=== PATIENT | male | born 1950 | race Caucasian/White ===

== ENCOUNTER → 2023-03-30 | Day surgery (SDC) | payer MEDICARE ==
[2023-03-28 12:53] VITALS: BMI 31.5
[~2023-03-30] MED LIST: LACTATED RINGERS 1,000 ML IV SCH; LIDOCAINE 1% (10MG/ML) FOR IV START INTRADERMA PRN; LIDOCAINE 2% INJ 20 MG/ML (2 ML VIAL) ONE; PROPOFOL 10 MG/ML 20 ML VIAL IV ONE
[2023-03-30 07:10] VITALS: BP 163/72; PULSE 61; RESP 16; TEMP 97.5
--- NOTE | 2023-03-30 08:21 | P.PCN ---
Date of Procedure: 03/30/23 Procedure(s) Performed: Brief history: Patient is a pleasant 72-year-old white male scheduled for an elective upper endoscopy as well as colonoscopy as a part of evaluation of reflux and history of GERD and screening for colon cancer. He is maintained on Nexium 20 mg daily with good symptomatic control. Procedure performed: Esophagogastroduodenoscopy with biopsy Colonoscopy with biopsy. If the biopsy of the colon polyp reveals adenoma he can have a repeat colonoscopy in 5 years. Preoperative diagnosis: Long-standing history of GERD Screening for colon cancer Anesthesia: MAC Procedure: After informed consent was obtained from the patient was brought into the endoscopy unit and IV sedation was administered by anesthesia under continuous monitoring. Initially upper endoscopy was done. The Olympus GF 160 video endoscope was inserted inserted into the mouth and esophagus intubated without a ny difficulty and was gradually advanced into the stomach and duodenum and carefully examined. The bulb and second part of the duodenum appeared normal. The scope was then withdrawn into the stomach adequately insufflated with air and upon careful examination the antrum and body, cardia and fundus appeared normal. Multiple gastric polyps noted in the body and fundus of the stomach measuring between 5 limited is 1 cm size which was biopsied. The scope was then withdrawn into the esophagus. The GE junction was located at 40 cm to the incisors. There was a 1.5 cm length of Monroe's appearing mucosa proximal to the GE junction was biopsied. Rest of the esophagus appeared normal. Patient tolerated the procedure well. At this time the patient continued to remain sedation. Initial digital rectal examination was normal. Olympus CF 160 video colonoscope was then inserted into the rectum and gradually advanced to the cecum without any difficulty. Careful examination was performed as the scope was gradually being withdrawn. The prep was excellent. The cecum, ascending colon normal. In the transverse colon there was a 3 mm sessile polyp removed by cold biopsy. Rest of the, transverse colon, descending colon, sigmoid colon and rectum appeared normal. Extensive left sided diverticulosis. Retroflexion was performed in the rectum and small internal hemorrhoids were noted. Patient tolerated the procedure well. Impression: 1. Upper endoscopy revealed multiple gastric polyps in the body and fundus of the stomach, small hiatal hernia and short segment Monroe's esophagus 2. Colonoscopy revealed a 3 mm transverse colon polyp status post cold biopsy, extensive left sided diverticulosis and small internal hemorrhoids Recommendations: Findings of this examination were discussed with the patient as well as his family. He was advised to follow with the biopsy results. If the biopsy confirms the presence of Monroe's esophagus he can have a repeat upper endoscopy 3 years. Continue with Nexium 20 mg daily and follow antireflux measures. Recommend repeat screening colonoscopy in 10 years.
== END ==
LOC: ORWHC2ENDO 06:41
PROVIDERS: ATTEND Internal Medicine Gastroenterology
DX: Z12.11 Encounter for screening for malignant neoplasm of colon (principal); D12.3 Benign neoplasm of transverse colon; K31.7 Polyp of stomach and duodenum; K64.8 Other hemorrhoids; K44.9 Diaphragmatic hernia without obstruction or gangrene; K31.A0 Gastric intestinal metaplasia, unspecified; K22.70 Barrett's esophagus without dysplasia; K57.30 Diverticulosis of large intestine without perforation or abscess without bleeding; E78.5 Hyperlipidemia, unspecified; K21.9 Gastro-esophageal reflux disease without esophagitis; Z87.891 Personal history of nicotine dependence; Z79.899 Other long term (current) drug therapy
CPT/HCPCS: 88305; 45380; 43239; J2704; J2001

== ENCOUNTER → 2024-01-28 | Outpatient (CLI) | payer MEDICARE ==
--- NOTE | 2024-01-28 12:55 | XR ---
EXAMINATION TYPE: XR foot complete 3 views LT DATE OF EXAM: 01/28/2024 Comparison: None Clinical History: 73-year-old male LEFT FOOT PAIN, swelling for 5 to 6 days Findings: Moderate-sized plantar heel spur. No acute fracture, subluxation or dislocation seen. Some mild soft tissue swelling about the foot. Impression: No acute osseous abnormality seen. Plantar heel spur.
== END | disposition home or self-care (01) ==
LOC: RADXRMAIN 12:06
PROVIDERS: ATTEND Family Medicine
DX: M77.32 Calcaneal spur, left foot (principal)

== ENCOUNTER 2024-02-15 08:14 | Emergency (ER) | payer MEDICARE ==
[2024-02-15 08:21] VITALS: BP 174/87; PULSE 58; RESP 16; TEMP 97.9
--- NOTE | 2024-02-15 08:40 | ED ---
Upper Extremity HPI - General Chief Complaint: Extremity Injury, Upper Stated Complaint: R pointer finger pain/swelling Time Seen by Provider: 02/15/24 08:15 Source: patient, RN notes reviewed Mode of arrival: ambulatory Limitations: no limitations - History of Present Illness Initial Comments: 73-year-old male presents emergency department chief complaint of right hand second digit pain, swelling. Patient states that somebody some signs Sunday or so but states last 2 days it is more painful swollen he always had a lump on that finger but now it is worse he is able to move it but states it causes mild discomfort no pain by his PIP patient denies any paresthesias. - Related Data Home Medications Medication Instructions Recorded Confirmed Esomeprazole Magnesium [NexIUM] 40 mg PO DAILY 03/28/23 03/30/23 Simvastatin 40 mg PO HS 03/28/23 03/28/23 Previous Rx's Medication Instructions Recorded Cephalexin [Keflex] 500 mg PO Q6HR #40 cap 02/15/24 Allergies Allergy/AdvReac Type Severity Reaction Status Date / Time No Known Allergies Allergy Verified 03/30/23 07:05 Review of Systems ROS Statement: Those systems with pertinent positive or pertinent negative responses have been documented in the HPI. ROS Other: All systems not noted in ROS Statement are negative. Past Medical History Past Medical History: GERD/Reflux, Hyperlipidemia History of Any Multi-Drug Resistant Organisms: None Reported Past Surgical History: Hernia Repair Additional Past Surgical History / Comment(s): colonoscopy, egd Past Anesthesia/Blood Transfusion Reactions: No Reported Reaction Past Psychological History: No Psychological Hx Reported Smoking Status: Former smoker - Past Family History Father Family Medical History: Cancer Additional Family Medical History / Comment(s): prostate General Exam Limitations: no limitations General appearance: alert, in no apparent distress Head exam: Present: atraumatic, normocephalic, normal inspection Respiratory exam: Present: normal lung sounds bilaterally. Absent: respiratory distress, wheezes, rales, rhonchi, stridor Cardiovascular Exam: Present: regular rate, normal rhythm, normal heart sounds. Absent: systolic murmur, diastolic murmur, rubs, gallop, clicks Extremities exam: Present: other (Right hand second digit there is swelling, erythema at the DIP, neurovascular intact) Course Vital Signs 02/15/24 08:18 Temperature 97.9 F Pulse Rate 58 L Respiratory 16 Rate Blood Pressure 174/87 O2 Sat by Pulse 98 Oximetry Medical Decision Making - Medical Decision Making Was pt. sent in by a medical professional or institution (BET[facility] Leonardo, RELOCATION SERVICES SPECIALIST, urgent care, hospital, or detention...) When possible be specific @ -No Did you speak to anyone other than the patient for history (EMS, parent, family, police, friend...)? What history was obtained from this source @ -No Did you review nursing and triage notes (agree or disagree)? Why? @ -I reviewed and agree with nursing and triage notes Were old charts reviewed (outside hosp., previous admission, EMS record, old EKG, old radiological studies, urgent care reports/EKG's, detention records)? Report findings @ -No old charts were reviewed Differential Diagnosis (chest pain, altered mental status, abdominal pain women, abdominal pain men, vaginal bleeding, weakness, fever, dyspnea, syncope, headache, dizziness, GI bleed, back pain, seizure, CVA, palpatations, mental health, musculoskeletal)? @ -Cellulitis paronychia felon gout, this list is not all inclusive EKG interpreted by me (3pts min.). @ -None X-rays interpreted by me (1pt min.). @ -X-ray right hand second digit there is osteoarthritis changes noted, soft tis sandrita swelling CT interpreted by me (1pt min.). @ -None done U/S interpreted by me (1pt. min.). @ -None done What testing was considered but not performed or refused? (CT, X-rays, U/S, labs)? Why? @ -None What meds were considered but not given or refused? Why? @ -None Did you discuss the management of the patient with other professionals (professionals i.e. BETI Leonardo, RELOCATION SERVICES SPECIALIST, lab, RT, psych nurse, social worker clinical, poultry scalder, teacher, placement officer, shelter case manager)? Give summary @ -No Was smoking cessation discussed for >3mins.? @ -No Was critical care preformed (if so, how long)? @ -No Were there social determinants of health that impacted care today? How? (Homelessness, low income, unemployed, alcoholism, drug addiction, transportation, low edu. Level, literacy, decrease access to med. care, snf, rehab)? @ -No Was there de-escalation of care discussed even if they declined (Discuss DNR or withdrawal of care, Hospice)? DNR status @ -No What co-morbidities impacted this encounter? (DM, HTN, Smoking, COPD, CAD, Cancer, CVA, ARF, Chemo, Hep., AIDS, mental health diagnosis, sleep apnea, morbid obesity)? @ -None Was patient admitted / discharged? Hospital course, mention meds given and route, prescriptions, significant lab abnormalities, going to OR and other pertinent info. @ -Discharge patient has erythematous changes, concerning for infection of his finger he does have good range of motion moderate soft tissue swelling patient advised to follow-up with hand surgeon for recheck next 24 to 48 hours he will be started on oral antibiotics there is no signs of osteomyelitis and there is no erythema proximal to the DIP. Patient discharged in stable condition return for as discussed Undiagnosed new problem with uncertain prognosis? @ -No Drug Therapy requiring intensive monitoring for toxicity (Heparin, Nitro, Insulin, Cardizem)? @ -No Were any procedures done? @ -No Diagnosis/symptom? @ -Finger cellulitis, osteoarthritis Acute, or Chronic, or Acute on Chronic? @ -uncomplicated Uncomplicated (without systemic symptoms) or Complicated (systemic symptoms)? @ -Acute Side effects of treatment? @ -No Exacerbation, Progression, or Severe Exacerbation? @ -No Poses a threat to life or bodily function? How? (Chest pain, [place], [place], pneumonia, PE, COPD, DKA, ARF, appy, cholecystitis, CVA, Diverticulitis, Homicidal, Suicidal, threat to staff... and all critical care pts) @ -No Disposition Clinical Impression: OA (osteoarthritis) of finger, Cellulitis, finger Disposition: HOME SELF-CARE Condition: Stable Instructions (If sedation given, give patient instructions): Cellulitis (ED) Additional Instructions: Please return to the Emergency Department if symptoms worsen or any other concerns. Prescriptions: Cephalexin [Keflex] 500 mg PO Q6HR #40 cap Is patient prescribed a controlled substance at d/c from ED?: No Referrals: Lonnie Carson DO [Primary Care Provider] - 1-2 days Adriana Wren DO [Doctor of Osteopathic Medicine] - 1-2 days Joseph Richards DO [Doctor of Osteopathic Medicine] - 1-2 days Time of Disposition: 09:14
--- NOTE | 2024-02-15 09:01 | XR ---
EXAMINATION TYPE: XR finger RT DATE OF EXAM: 02/15/2024 8:53 AM CLINICAL INDICATION:Male, 73 years old with history of pain, swelling; [facility] COMPARISON: None TECHNIQUE: XR finger RT Frontal, lateral and oblique views were obtained. FINDINGS: Soft tissue swelling around the second digit distal interphalangeal joint. No evidence of f racture. No osseous erosion. Degeneration changes of other joints visualized in the [id number]. IMPRESSION: Second digit distal interphalangeal joint soft tissue swelling with moderate to severe degeneration c hanges. No evidence for fracture. No osseous erosion.
[2024-02-15] MEDS: ACET/COD 300 MG/30 MG STARTER PACK 6 TAB BTL PO STA (09:40)
== END 2024-02-15 09:43 | disposition home or self-care (01) ==
LOC: EC 08:14
DX: M19.041 Primary osteoarthritis, right hand (principal); L03.011 Cellulitis of right finger; Z87.891 Personal history of nicotine dependence
CPT/HCPCS: 99283